=== PATIENT | male | born 1955 | race Caucasian/White ===

== ENCOUNTER → 2017-12-21 | Day surgery (SDC) | payer MEDICARE, MEDICAID ==
[2017-12-21] VITALS (12 sets, daily range): BP systolic 162–183; BP diastolic 84–97
[~2017-12-21] VITALS: Ht 177.8 cm; Wt 105.2 kg
[~2017-12-21] MED LIST: AMLO10TA80 PO; ASPI-1159 PO; ATOR10TA69 PO; FENTANYL CITRATE/PF 50MCG/ML 2ML VIAL IV ONE; FENTANYL CITRATE/PF 50MCG/ML 2ML VIAL ONE; LIDOCAINE HCL 1% 20ML VIAL (Pyxis) INJ ONE; LISI40TA4 PO; METO-539 PO; OMEP20TA2 PO; SODIUM BICARBONATE 4% (2.4MEQ) 5ML VIAL IV ONE
== END | disposition home or self-care (01) ==
LOC: RAD 09:17
PROVIDERS: ATTEND Specialist
DX: R91.8 Other nonspecific abnormal finding of lung field (principal); Z79.82 Long term (current) use of aspirin
CPT/HCPCS: 32405; 71045; 77012; 88305; J3010; J3490

== ENCOUNTER 2018-12-25 06:18 | Day surgery (SDC) | payer MEDICARE, MEDICAID ==
[~2018-12-25] VITALS: Ht 177.8 cm; Wt 104.3 kg
[~2018-12-25 06:18] MED LIST changes: -ATOR10TA69 PO; -FENTANYL CITRATE/PF 50MCG/ML 2ML VIAL IV ONE; -FENTANYL CITRATE/PF 50MCG/ML 2ML VIAL ONE; +LACTATED RINGERS 1,000 ML IV SCH; -LIDOCAINE HCL 1% 20ML VIAL (Pyxis) INJ ONE; +LIP40 PO; -SODIUM BICARBONATE 4% (2.4MEQ) 5ML VIAL IV ONE
[2018-12-25] MEDS ORDERED: SKIN ADHESIVE 0.7 GM EA TOP ONE (07:55)
[2018-12-25] MEDS ORDERED: BUPIVACAINE HCL 0.5% (5MG/ML) 50ML ONE (07:55)
[2018-12-25] MEDS ORDERED: ONDANSETRON HCL 4MG/2ML INJ ONE (09:13)
[2018-12-25] MEDS ORDERED: LIDOCAINE HCL/PF 1% 10 MG/ML 5ML VIAL ONE (09:13)
[2018-12-25] MEDS ORDERED: METOCLOPRAMIDE HCL 10MG/2ML VIAL ONE (09:13)
[2018-12-25] MEDS ORDERED: GLYCOPYRROLATE 0.2 MG/ML 2ML VIAL ONE ×2 (09:13→09:14)
[2018-12-25] MEDS ORDERED: SUCCINYLCHOLINE CHLORIDE 200MG/10ML IV ONE (09:13)
[2018-12-25] MEDS ORDERED: FENTANYL CITRATE/PF 50MCG/ML 2ML VIAL ONE ×2 (09:13→10:09)
[2018-12-25] MEDS ORDERED: PROPOFOL 200MG/20ML VIAL IV ONE (09:13)
[2018-12-25] MEDS ORDERED: MIDAZOLAM HCL 2 MG/2 ML VIAL ONE (09:13)
[2018-12-25] MEDS ORDERED: ROCURONIUM BROMIDE 10MG/ML VIAL 5ML IV ONE ×2 (09:14→10:10)
[2018-12-25] MEDS ORDERED: NEOSTIGMINE METHYLSULFATE 1MG/ML 10 ML VIAL ONE (09:14)
[2018-12-25] MEDS ORDERED: CEFAZOLIN SODIUM 1000MG/VIAL ONE (09:20)
[2018-12-25] MEDS ORDERED: SODIUM CHLORIDE 0.9% 1,000 ML IV ONE (10:59)
[2018-12-25] MEDS ORDERED: ONDANSETRON HCL 4MG/2ML INJ IV PRN (11:00)
[2018-12-25] MEDS ORDERED: MEPERIDINE HCL/PF 25MG/ML CPJ IV PRN ×2 (11:00)
[2018-12-25] MEDS ORDERED: MORPHINE SULFATE 4 MG/ML CPJ (NOT FOR IM USE) IV PRN (11:00)
[2018-12-25] MEDS: HYDROMORPHONE HCL/PF 2MG/ML CPJ IV PRN ×5 (11:35→12:44)
[2018-12-25] MEDS ORDERED: HYDROCODONE/ACETAMINOPHEN 5/325MG TABLET PO PRN (13:00)
[2018-12-25 13:05] VITALS: BP 150/73
== END 2018-12-25 13:55 | disposition home or self-care (01) ==
LOC: OR 06:18
PROVIDERS: ATTEND Surgery
DX: K42.9 Umbilical hernia without obstruction or gangrene (principal); I10 Essential (primary) hypertension; I25.2 Old myocardial infarction
CPT/HCPCS: 49652; 93005; C1781; G0168; J0330; J0690; J1170; J2175; J2250; J2405; J2704; J2710; J2765; J3010; J3490